=== PATIENT | male | born 1945 | race Caucasian/White ===

== ENCOUNTER 2022-04-22 12:40 | Emergency (ER) | payer OTHER ==
[2022-04-22] MEDS ORDERED: predniSONE 20 MG TAB ONE (13:45)
[2022-04-22] MEDS ORDERED: Ketorolac Tromethamine 30 MG/ML VIAL ONE (13:46)
[2022-04-22] MEDS ORDERED: tiZANidine HCl 4 MG TAB PO SCH (14:00)
[2022-04-22] MEDS ORDERED: predniSONE 20 MG TAB PO SCH (14:00)
[2022-04-22 14:07] LABS: Bilirubin Neg (Negative); Blood, Urine 50 (Negative); Clarity Clear (Clear); Glucose, Urine (Dipstick) Normal (Negative); Ketone, Urine 5 mg/dL (Negative); Leukocyte Negative (Negative); Nitrite Negative (Negative); Protein, Urine (Dipstick) Negative (Neg-Trace); Specific Gravity, Urine 1.015 (1.005-1.030); Urobilinogen Normal mg/dL (Less than 2)
[2022-04-22 14:13] LABS: Bacteria/HPF None Seen HPF (None Seen); Squamous Epithelial 0-3 HPF (0-3); WBC/HPF 0-3 HPF (0-3)
== END 2022-04-22 14:35 | disposition home or self-care (01) ==
LOC: CSHERS 12:40
DX: M54.50 Low back pain, unspecified (principal); Z87.891 Personal history of nicotine dependence
CPT/HCPCS: 81003; 81015; 96372; 99283; J1885; J7512

== ENCOUNTER 2025-03-30 15:46 | Inpatient (IN) | payer OTHER ==
[2025-03-30] MEDS ORDERED: Albuterol 2.5 MG (3 mL) NEB ONE (16:54)
[2025-03-30 16:59] LABS: #Basophils 0.03 10x3/uL (0.0-0.2); #Eosinophils Less than 0.03 10x3/uL (0.0-0.5); #Monocytes 1.12 10x3/uL (0.0-1.1); #Neutrophils 6.80 10x3/uL (1.5-8.4); %Basophils 0.3 % (0.0-2.0); %Eosinophils 0.2 % (0.0-6.0); %Lymphocytes 10.5 % (18.0-47.0); %Monocytes 12.5 % (0.0-10.0); %Neutrophils 75.8 % (40.0-75.0); Hematocrit 35.2 % (38.8-50.0); Hemoglobin 13.0 g/dL (13.5-17.5); Mean Corpuscular Hemoglobin 32.5 pg (27.0-33.0); Mean Corpuscular Volume 88.0 fL (81.2-95.1); Platelet Count 353 10x3/uL (150-450); Red Blood Cell (RBC) Count 4.00 10x6/uL (4.32-5.72); White Blood Cell (WBC) Count 8.97 10x3/uL (3.5-10.5)
[2025-03-30 17:11] LABS: ALT (SGPT) 11 U/L (Less than 45); AST (SGOT) 19 U/L (11-34); Albumin 4.5 g/dL (3.1-4.5); Alkaline Phosphatase 62 U/L (40-110); Anion Gap 15 mmol/L (10-20); BUN (Urea Nitrogen) 12 mg/dL (8.4-25.7); Bilirubin, Total 1.0 mg/dL (0.3-1.2); Calc. Creatinine Clearance 0 mL/min (70-130); Calcium 9.2 mg/dL (7.8-10.44); Carbon Dioxide 19 mmol/L (23-31); Chloride 91 mmol/L (98-107); Globulin 2.6 g/dL (2.4-3.5); Glucose 123 mg/dL (83-110); Potassium 3.8 mmol/L (3.5-5.1)
[2025-03-30 17:16] LABS: Troponin I Less than 0.010 ng/mL (< 0.028)
[2025-03-30 17:27] LABS: Sodium 121 mmol/L (136-145)
[2025-03-30] MEDS ORDERED: hydrALAZINE 20 MG/ML VIAL ONE (18:07)
[2025-03-30 18:39] LABS: Magnesium 1.8 mg/dL (1.6-2.6)
[2025-03-30] MEDS ORDERED: Furosemide 40 MG (4 mL) VIAL ONE (19:18)
[2025-03-30] MEDS ORDERED: Ondansetron PF 4 MG/2 ML Vial IVP PRN (19:35)
[2025-03-30] MEDS ORDERED: Melatonin 3 MG TAB PO PRN (19:35)
[2025-03-30] MEDS ORDERED: Calcium Carbonate 500 MG ChewTAB PO PRN (19:35)
[2025-03-30 21:06] VITALS: BMI 20.1
[2025-03-30 22:27] LABS: Osmolality, Serum 249 mOsm/kg (280-301)
[2025-03-30 22:34] LABS: Glucose, Urine (Dipstick) Normal (Negative); Leukocyte Negative (Negative); Protein, Urine (Dipstick) Negative (Neg-Trace); Specific Gravity, Urine 1.005 (1.005-1.030)
[2025-03-30 22:35] LABS: Anion Gap 16 mmol/L (10-20); BUN (Urea Nitrogen) 14 mg/dL (8.4-25.7); Calc. Creatinine Clearance 56 mL/min (70-130); Calcium 9.2 mg/dL (7.8-10.44); Carbon Dioxide 18 mmol/L (23-31); Chloride 90 mmol/L (98-107); Glucose 192 mg/dL (83-110); Potassium 3.4 mmol/L (3.5-5.1); Sodium 121 mmol/L (136-145)
[2025-03-30 22:37] LABS: Bacteria/HPF None Seen HPF (None Seen); RBC/HPF 0-3 HPF (0-3); WBC/HPF None Seen HPF (0-3)
[2025-03-30] MEDS: Cefdinir 300 MG CAP PO SCH (22:37)
[2025-03-30] MEDS: Losartan 25 MG TAB PO SCH (22:38)
[2025-03-30] MEDS: Magnesium 2 GM/50 ML(in water) 2 GM in Premix 1 BAG IVPB SCH (22:38)
[2025-03-30 23:33] LABS: Cocaine Metabolite Screen Negative (Negative); THC/Cannabinoid Screen PRELIM POSITIVE (Negative); Tricyclic Screen Negative (Negative)
[2025-03-31 04:22] LABS: Anion Gap 14 mmol/L (10-20); BUN (Urea Nitrogen) 17 mg/dL (8.4-25.7); Calc. Creatinine Clearance 59 mL/min (70-130); Calcium 8.9 mg/dL (7.8-10.44); Carbon Dioxide 20 mmol/L (23-31); Chloride 92 mmol/L (98-107); Glucose 150 mg/dL (83-110); Potassium 4.0 mmol/L (3.5-5.1); Sodium 122 mmol/L (136-145)
[2025-03-31] MEDS: Mometasone 200 MCG/Formoterol 5 MCG 60 PUFF INHALER INH SCH (07:13)
[2025-03-31] MEDS: FLU (Fluad Triv) 25-26 (65UP)PF 45 MCG/0.5 ML Syringe IM ONE (08:26)
[2025-03-31] MEDS: Losartan 50 MG TAB PO SCH (08:52)
[2025-03-31] MEDS: Enoxaparin 40 MG (0.4 mL) SYRINGE SC SCH (08:52)
[2025-03-31] MEDS: Furosemide 20 MG (2 mL) VIAL SLOW IVP SCH (08:52)
[2025-03-31] MEDS: Finasteride 5 MG TAB PO SCH (08:52)
[2025-03-31] MEDS: Pantoprazole 40 MG DR.TAB PO SCH (08:52)
[2025-03-31] MEDS: Cefdinir 300 MG CAP PO SCH (08:52)
[2025-03-31] MEDS: Acetaminophen 325 MG TAB PO PRN (09:06)
[2025-03-31 09:16] LABS: Anion Gap 14 mmol/L (10-20); BUN (Urea Nitrogen) 20 mg/dL (8.4-25.7); Calc. Creatinine Clearance 60 mL/min (70-130); Calcium 9.4 mg/dL (7.8-10.44); Carbon Dioxide 21 mmol/L (23-31); Chloride 93 mmol/L (98-107); Glucose 157 mg/dL (83-110); Potassium 3.8 mmol/L (3.5-5.1); Sodium 124 mmol/L (136-145)
[2025-03-31] MEDS: Atenolol 25 MG TAB PO SCH (12:41)
[2025-03-31 12:57] VITALS: BMI 20.1
[2025-03-31 13:38] LABS: Osmolality, Urine 280 mOsm/kg (50-1200)
[2025-03-31] MEDS: Guaifenesin DM 100-10/5 ML UDCUP PO PRN (13:41)
[2025-03-31] MEDS: Thiamine 100 MG TAB PO SCH (17:31)
[2025-03-31] MEDS: Folic Acid 1 MG TAB PO SCH (17:32)
[2025-03-31 19:42] LABS: Sodium, Urine 104.0 mmol/L (Not Available)
[2025-03-31 20:33] LABS: Anion Gap 16 mmol/L (10-20); BUN (Urea Nitrogen) 25 mg/dL (8.4-25.7); Calc. Creatinine Clearance 51 mL/min (70-130); Calcium 8.8 mg/dL (7.8-10.44); Carbon Dioxide 18 mmol/L (23-31); Chloride 95 mmol/L (98-107); Glucose 142 mg/dL (83-110); Potassium 3.9 mmol/L (3.5-5.1); Sodium 125 mmol/L (136-145)
[2025-04-01 05:29] LABS: Anion Gap 14 mmol/L (10-20); BUN (Urea Nitrogen) 31 mg/dL (8.4-25.7); Calc. Creatinine Clearance 53 mL/min (70-130); Calcium 8.8 mg/dL (7.8-10.44); Carbon Dioxide 21 mmol/L (23-31); Chloride 96 mmol/L (98-107); Glucose 115 mg/dL (83-110); Magnesium 2.3 mg/dL (1.6-2.6); Potassium 4.0 mmol/L (3.5-5.1); Sodium 127 mmol/L (136-145)
[2025-04-01] MEDS: Thiamine 100 MG TAB PO SCH (08:16)
[2025-04-01] MEDS: Atenolol 25 MG TAB PO SCH (08:16)
[2025-04-01] MEDS: Folic Acid 1 MG TAB PO SCH (08:17)
[2025-04-01 13:12] LABS: Anion Gap 12 mmol/L (10-20); BUN (Urea Nitrogen) 33 mg/dL (8.4-25.7); Calc. Creatinine Clearance 55 mL/min (70-130); Calcium 8.7 mg/dL (7.8-10.44); Carbon Dioxide 21 mmol/L (23-31); Chloride 95 mmol/L (98-107); Glucose 128 mg/dL (83-110); Potassium 4.0 mmol/L (3.5-5.1); Sodium 124 mmol/L (136-145)
[2025-04-01] MEDS: predniSONE 20 MG TAB PO SCH (20:54)
[2025-04-02 08:09] LABS: Anion Gap 12 mmol/L (10-20); BUN (Urea Nitrogen) 34 mg/dL (8.4-25.7); Calc. Creatinine Clearance 60 mL/min (70-130); Calcium 8.9 mg/dL (7.8-10.44); Carbon Dioxide 23 mmol/L (23-31); Chloride 101 mmol/L (98-107); Glucose 118 mg/dL (83-110); Potassium 4.5 mmol/L (3.5-5.1); Sodium 131 mmol/L (136-145)
[2025-04-02] MEDS: NIFEdipine XL 60 MG ER.TAB PO SCH (13:23)
[2025-04-02] MEDS: Mometasone 200 MCG/Formoterol 5 MCG 60 PUFF INHALER INH SCH (18:50)
[2025-04-02] MEDS: Losartan 50 MG TAB PO SCH (20:56)
[2025-04-03 04:34] LABS: #Basophils Less than 0.03 10x3/uL (0.0-0.2); #Eosinophils Less than 0.03 10x3/uL (0.0-0.5); #Monocytes 0.66 10x3/uL (0.0-1.1); #Neutrophils 7.24 10x3/uL (1.5-8.4); %Basophils 0.1 % (0.0-2.0); %Eosinophils 0.0 % (0.0-6.0); %Lymphocytes 6.6 % (18.0-47.0); %Monocytes 7.7 % (0.0-10.0); %Neutrophils 84.4 % (40.0-75.0); Hematocrit 35.9 % (38.8-50.0); Hemoglobin 12.7 g/dL (13.5-17.5); Mean Corpuscular Hemoglobin 32.5 pg (27.0-33.0); Mean Corpuscular Volume 91.8 fL (81.2-95.1); Platelet Count 383 10x3/uL (150-450); Red Blood Cell (RBC) Count 3.91 10x6/uL (4.32-5.72); White Blood Cell (WBC) Count 8.58 10x3/uL (3.5-10.5)
[2025-04-03 04:47] LABS: Anion Gap 12 mmol/L (10-20); BUN (Urea Nitrogen) 34 mg/dL (8.4-25.7); Calc. Creatinine Clearance 58 mL/min (70-130); Calcium 8.5 mg/dL (7.8-10.44); Carbon Dioxide 22 mmol/L (23-31); Chloride 101 mmol/L (98-107); Glucose 122 mg/dL (83-110); Potassium 4.1 mmol/L (3.5-5.1); Sodium 131 mmol/L (136-145)
[2025-04-03] MEDS ORDERED: NIFEdipine XL 60 MG ER.TAB PO SCH (09:00)
[2025-04-03 13:38] VITALS: BP 160/85; TEMP 98.7
== END 2025-04-03 14:10 | disposition home or self-care (01) | DRG 202 ==
LOC: CSHERS 15:46 → CSHTELE 19:36
PROVIDERS: ADMIT Student in an Organized Health Care Education/Training Program; ATTEND Family Medicine
DX: J20.9 Acute bronchitis, unspecified (principal); E87.1 Hypo-osmolality and hyponatremia; J44.1 Chronic obstructive pulmonary disease with (acute) exacerbation; I16.9 Hypertensive crisis, unspecified; E87.20 Acidosis, unspecified; J44.0 Chronic obstructive pulmonary disease with (acute) lower respiratory infection; I16.0 Hypertensive urgency; N40.0 Benign prostatic hyperplasia without lower urinary tract symptoms; Z90.49 Acquired absence of other specified parts of digestive tract; Z98.890 Other specified postprocedural states; F10.90 Alcohol use, unspecified, uncomplicated; F12.90 Cannabis use, unspecified, uncomplicated; Z87.891 Personal history of nicotine dependence; F41.9 Anxiety disorder, unspecified; Z72.820 Sleep deprivation; I10 Essential (primary) hypertension; Z79.899 Other long term (current) drug therapy; Z79.51 Long term (current) use of inhaled steroids
CPT/HCPCS: 36415; 71045; 80048; 80053; 80306; 81001; 82533; 82570; 83605; 83735; 83930; 83935; 84300; 84443; 84484; 84550; 85025; 87428; 93005; 96374; 96375; J0360; J1650; J1940; J2919; J3475; J7512; J7611